=== PATIENT | female | born 1950 | race Two or more races ===

== ENCOUNTER 2019-10-24 08:15 | Outpatient (CLI) | payer OTHER | END 2019-10-24 11:12 | disposition home or self-care (01) | LOC: SONOGRAMA 08:15 | DX: R22.2 Localized swelling, mass and lump, trunk (principal) ==

== ENCOUNTER 2023-01-15 11:26 | Outpatient (CLI) | payer OTHER | END 2023-01-15 11:33 | disposition home or self-care (01) | LOC: RAD 11:26 | PROVIDERS: ATTEND Neurological Surgery | DX: M54.42 Lumbago with sciatica, left side (principal); M62.830 Muscle spasm of back; M62.838 Other muscle spasm; M79.605 Pain in left leg; M41.56 Other secondary scoliosis, lumbar region; G89.4 Chronic pain syndrome; M96.1 Postlaminectomy syndrome, not elsewhere classified ==

== ENCOUNTER 2023-08-26 10:03 | Outpatient (CLI) | payer OTHER | END 2023-08-26 10:07 | disposition home or self-care (01) | LOC: RAD 10:03 | PROVIDERS: ATTEND Neurological Surgery | DX: M51.16 Intervertebral disc disorders with radiculopathy, lumbar region (principal); M62.830 Muscle spasm of back; M47.26 Other spondylosis with radiculopathy, lumbar region; M99.73 Connective tissue and disc stenosis of intervertebral foramina of lumbar region; M85.80 Other specified disorders of bone density and structure, unspecified site; M41.56 Other secondary scoliosis, lumbar region; M13.0 Polyarthritis, unspecified; M43.8X9 Other specified deforming dorsopathies, site unspecified ==